=== PATIENT | female | born 2005 | race Caucasian/White ===

== ENCOUNTER → 2025-10-26 | Outpatient (REF) ==
[2025-10-27 13:37] LABS: HERPES ZOSTER, VARICELLA IgG < 1.00 S/CO (>=1.00); RUBEOLA IgG ANTIBODY > 300.00 AU/mL (>16.49)
== END ==
LOC: M LAB 12:46
PROVIDERS: ATTEND Family Medicine
DX: Z01.89 Encounter for other specified special examinations (principal)